=== PATIENT | female | born 1935 | race Caucasian/White ===

== ENCOUNTER 2017-10-04 11:32 | Emergency (ER) | payer MEDICARE, OTHER, MEDICAID ==
--- NOTE | 2017-10-04 11:49 | EDM.PDOC ---
ED HPI GENERAL MEDICAL PROBLEM - General Chief Complaint: Lower Extremity Injury/Pain Stated Complaint: ER Time Seen by Provider: 10/04/17 11:40 Source of Information: Reports: Patient, Family - History of Present Illness INITIAL COMMENTS - FREE TEXT/NARRATIVE: Patient comes into the emergency department with family with complaints of right foot pain. Patient was going down a step approximately 3 days ago and miss -stepped and rolled laterally on her foot. She states that she felt pain right away however she was able to ambulate and continue with her activities of daily living without concern. However this morning and it is increased in swelling and pain and is getting more difficult to ambulate on. Patient denies any numbness or tingling but does state that she has pain when stepping on the foot. No recent history or injuries related to that foot. Onset: Sudden Right Feet Pain Score (Numeric/FACES): 7 - Related Data Allergies Allergy/AdvReac Type Severity Reaction Status Date / Time atorvastatin [From Lipitor] Allergy Weakness Verified 10/04/17 12:10 cerivastatin [From Baycol] Allergy Weakness Verified 10/04/17 12:10 ezetimibe [From Zetia] Allergy Weakness Verified 10/04/17 12:10 Home Meds: Home Meds . [Unable to Verify Home Med List] 10/04/17 [History] Review of Systems - Review of Systems Review Of Systems: See Below Constitutional: Reports: No Symptoms Eyes: Reports: No Symptoms Respiratory: Reports: No Symptoms Cardiovascular: Reports: No Symptoms Musculoskeletal: Reports: Foot Pain Skin: Reports: No Symptoms ED EXAM, GENERAL - Physical Exam Exam: See Below Exam Limited By: No Limitations General Appearance: Alert, WD/WN, No Apparent Distress Respiratory/Chest: No Respiratory Distress, No Accessory Muscle Use Cardiovascular: Normal Peripheral Pulses Extremities: Other (right foot swelling, ecchymosis and decreased range of motion with flextion and internal rotation of the foot. Pain is located on the lateral aspect of the foot) Psychiatric: Normal Affect, Normal Mood Skin Exam: Warm, Dry, Intact, Normal Color, No Rash Course - Vital Signs Last Recorded V/S: Last Vital Signs Temp 37.5 C 10/04/17 11:32 Pulse 80 10/04/17 11:32 Resp 16 10/04/17 11:32 BP 128/75 10/04/17 11:32 Pulse Ox - Orders/Labs/Meds Orders: Active Orders 24 hr Category Date Time Status Foot Comp Min 3V Rt [CR] Stat Exams 10/04/17 11:42 Taken Departure - Departure Time of Disposition: 14:05 Disposition: Home, Self-Care 01 Condition: Good Clinical Impression: Metatarsal fracture Qualifiers: Encounter type: initial encounter Metatarsal bone: fifth Fracture type: closed Fracture alignment: nondisplaced Laterality: right Qualified Code(s): S92.354A - Nondisplaced fracture of fifth metatarsal bone, right foot, initial encounter for closed fracture - Discharge Information Instructions: Metatarsal Fracture Referrals: Theresa Jordan DO [Primary Care Provider] - Forms: ED Department Discharge Additional Instructions: 1. rest 2. Ice the area 3 times daily, 20 minutes each time 3. Keep extremity elevated to help reduce the swelling 4. OTC medication can be taken to help reduce the swelling and pain 5. Increase water intake if taking pain medications 6. Follow up with orthopedic in [place]. Call Friday for an appointment . - My Orders Last 24 Hours: My Active Orders 10/04/17 11:42 Foot Comp Min 3V Rt [CR] Stat - Assessment/Plan Last 24 Hours: My Active Orders 10/04/17 11:42 Foot Comp Min 3V Rt [CR] Stat Assessment:: 1. right foot pain 2. fifth metatarsal fracture of the right foot Plan: 1. xray completed in ER with results reviewed with the pt 2. Ice to the area while in the ER to reduce the swelling 3. consultation completed with [facility] regarding x-ray findings of acute multi-partite avulsion fracture at the base of the fifth metatarsal. Currently the surgeon is in surgery and he will call me back as soon as he is available ( 12:30). 4. 1400 call back from surgeon combination man at [place] (Dr. Franco). recommendation to put on a post operative surgical boot. And follow-up with orthopedic within the next week. Patient is advised to call on Friday. 5. Information regarding [facility] was given to the patient 6. education also given to the patient regarding [id number] pain medications
[2017-10-04 11:59] VITALS: BP 128/75
== END 2017-10-04 14:15 | disposition home or self-care (01) ==
LOC: VM.ED 11:32
DX: S92.354A Nondisplaced fracture of fifth metatarsal bone, right foot, initial encounter for closed fracture (principal); Z88.8 Allergy status to other drugs, medicaments and biological substances; W10.9XXA Fall (on) (from) unspecified stairs and steps, initial encounter
CPT/HCPCS: 73630-RT; 99283

== ENCOUNTER 2019-11-22 17:12 | Observation (INO) | payer MEDICARE, OTHER, MEDICAID ==
--- NOTE | 2019-11-22 18:10 | CR ---
[id number] RAD/RAD Foot Bilateral 3V EXAM: 6 VIEWS BILATERAL FEET. INDICATION: PAIN/ECCHYMOSIS TO FEET/TOES, UNKNOWN TRAUMA. COMPARISON: None. DISCUSSION: Age-indeterminate fracture involving the proximal right 1st phalanx. No significant displacement. This appears likely chronic though suggestion of fracture line is evident. Acute fracture of the base of the proximal 5th metatarsal. No significant displacement. Degenerative changes seen throughout the feet bilaterally. IMPRESSION: 1. As above. Harpreet Rosales DO 11/22/19 1809 Thank you for allowing us to participate in the care of your patient.
--- NOTE | 2019-11-22 18:59 | CR ---
[id number] RAD/RAD Pelvis 1V W 2V Right Hip EXAM: 3 VIEWS RIGHT HIP. INDICATION: HIP PAIN, UNKNOWN TRAUMA. HISTORY OF DEMENTIA. COMPARISON: None. DISCUSSION: No fracture, dislocation or other acute osseous abnormality. Mild degenerative changes of the right hip. IMPRESSION: 1. NO ACUTE OSSEOUS ABNORMALITIES. Harpreet Rosales DO 11/22/19 [id number] Thank you for allowing us to participate in the care of your patient.
[2019-11-22] MEDS ORDERED: Take Home: Acetaminophen/Codeine 300 MG/30 MG, 5 Tab Pack PO ONE (19:03)
--- NOTE | 2019-11-22 19:24 | EDM.PDOC ---
ED HPI GENERAL MEDICAL PROBLEM - General Chief Complaint: Lower Extremity Injury/Pain Stated Complaint: GENERAL Time Seen by Provider: 11/22/19 17:15 Source of Information: Reports: Patient, EMS, Family History Limitations: Reports: No Limitations - History of Present Illness INITIAL COMMENTS - FREE TEXT/NARRATIVE: Pt. presents to ER with complaints of bilateral foot pain and difficulty with standing/ambulation. Pt. has a history of severe dementia and resides in an apartment by herself. Daughter states that she checked on her and noticed that there was an acute change in the patient's status. Pt. denies any trauma. She was transported to ER via EMS. On arrival to ER, she had already forgotten about why she was transported. Apparently she was not experiencing any discomfort unless she was walking or bearing weight. Again, patient denies any trauma but she has severe dementia. Denies any trauma elsewhere. Location: Reports: Lower Extremity, Left, Lower Extremity, Right Quality: Reports: Ache Severity: Moderate Improves with: Reports: Rest Worsens with: Reports: Movement Associated Symptoms: Reports: Other. Denies: Chest Pain, Cough, Diaphoresis, Fever/Chills, Headaches, Loss of Appetite, Nausea/Vomiting, Rash, Shortness of Breath, Syncope Treatments SUPERVISOR TAPING: Reports: IV/IO Bilateral Feet Pain Score (Numeric/FACES): 5 Right Hip Pain Score (Numeric/FACES): 4 - Related Data Allergies Allergy/AdvReac Type Severity Reaction Status Date / Time atorvastatin [From Lipitor] Allergy Weakness Verified 11/22/19 18:29 cerivastatin [From Baycol] Allergy Weakness Verified 11/22/19 18:29 ezetimibe [From Zetia] Allergy Weakness Verified 11/22/19 18:29 Home Meds: Home Meds Acetaminophen [Tylenol] 650 mg PO Q4H PRN 11/22/19 [History] Aspirin 325 mg PO DAILY 11/22/19 [History] Calcium Carbonate/Vitamin D3 [Calcium 1,000 + D3 Caplet] 1 each PO DAILY [History] Cholecalciferol (Vitamin D3) [Vitamin D3] 2,000 unit PO DAILY 11/22/19 [History] Cyanocobalamin (Vitamin B-12) [B-12] 1,000 mcg PO DAILY 11/22/19 [History] Denosumab [Prolia] 60 mg SQ Q182D 11/22/19 [History] Donepezil HCl 10 mg PO DAILY 11/22/19 [History] Metoprolol Succinate [Toprol XL] 25 mg PO DAILY 11/22/19 [History] Past Medical History HEENT History: Reports: Cataract, Hard of Hearing, Other (See Below) Other HEENT History: presbyopia. hypermetropia Cardiovascular History: Reports: High Cholesterol, Hypertension, Other (See Below) Other Cardiovascular History: antiphospolipid antibody syndrome Gastrointestinal History: Reports: Other (See Below) Other Gastrointestinal History: cholecystitis Musculoskeletal History: Reports: Osteoporosis Neurological History: Reports: CVA, Other (See Below) Other Neuro History: cerebrovascular disease. cognitive impairment - Past Surgical History HEENT Surgical History: Reports: Other (See Below) Other HEENT Surgeries/Procedures: Right acoustic neuroma GI Surgical History: Reports: Cholecystectomy, Other (See Below) Other GI Surgeries/Procedures: lap delmy Female Surgical History: Reports: Hysterectomy Social & Family History - Tobacco Use Smoking Status *Q: Never Smoker Review of Systems - Review of Systems Review Of Systems: See Below Constitutional: Reports: No Symptoms Eyes: Reports: No Symptoms Ears: Reports: No Symptoms Nose: Reports: No Symptoms Mouth/Throat: Reports: No Symptoms Respiratory: Reports: No Symptoms Cardiovascular: Reports: No Symptoms GI/Abdominal: Reports: No Symptoms Genitourinary: Reports: No Symptoms Musculoskeletal: Reports: Other (bilateral foot/toe pain, R hip pain) Skin: Reports: No Symptoms Neurological: Reports: No Symptoms Psychiatric: Reports: No Symptoms ED EXAM, GENERAL - Physical Exam Exam: See Below Exam Limited By: No Limitations General Appearance: Alert, WD/WN, No Apparent Distress (Pleasant, smiling, offers no complaint unless examining he patient's feet.) Eye Exam: Bilateral Eye: EOMI, Normal Fundi, Normal Inspection, PERRL Nose: Normal Inspection, Normal Mucosa, No Blood Throat/Mouth: Normal Inspection, Normal Lips, Normal Teeth, Normal Oropharynx, Normal Voice, No Airway Compromise Head: Atraumatic, Normocephalic Neck: Normal Inspection, Supple, Non-Tender. No: Tender Lateral, Tender Midline Respiratory/Chest: No Respiratory Distress, Lungs Clear, Normal Breath Sounds, No Accessory Muscle Use, Chest Non-Tender Cardiovascular: Normal Peripheral Pulses, Regular Rate, Rhythm, No Edema, No JVD Peripheral Pulses: 4+: Radial (L) GI/Abdominal: Soft, Non-Tender, No Organomegaly, No Mass (Female) Exam: Deferred Rectal (Female) Exam: Deferred Back Exam: Normal Inspection, Full Range of Motion Extremities: Other (edema and ecchymosis noted to toes and forefoot bilaterally. Pain is most severe in R 5th digit. Also has pain in R hip, states is chronic. Noted to have some ecchymosis to forearms and elbows bilaterally. Also some pain to R hip so this was x-rayed as well.) Neurological: Alert, CN II-XII Intact, Normal Reflexes, No Motor/Sensory De ficits, Confused, Disoriented Psychiatric: Normal Affect, Normal Mood Skin Exam: Warm, Dry, Intact, Normal Color, No Rash Lymphatic: No Adenopathy Course - Vital Signs Last Recorded V/S: Last Vital Signs Temp 37.0 C 11/22/19 17:15 Pulse 96 11/22/19 17:15 Resp 16 11/22/19 17:15 BP 173/74 H 11/22/19 17:15 Pulse Ox 99 11/22/19 17:15 - Orders/Labs/Meds Meds: Medications Discontinued Medications Generic Name Dose Route Start Last Admin Trade Name Freq PRN Reason Stop Dose Admin Acetaminophen/Codeine Phosphate 1 packet 11/22/19 19:03 Take Home: Acetam/Codeine 300-30 Mg, 5 Pack PO 11/22/19 19:04 ONETIME ONE Departure - Departure Time of Disposition: 19:25 Disposition: Admitted As Inpatient 65 Clinical Impression: Toe fracture, right, Decreased mobility, Dementia - Discharge Information Sepsis Event Note (ED) - Evaluation Sepsis Screening Result: No Definite Risk - Focused Exam Vital Signs: Vital Signs Temp Pulse Resp BP Pulse Ox 11/22/19 17:15 37.0 C 96 16 173/74 H 99 - Problem List Review Problem List Initiated/Reviewed/Updated: Yes - Assessment/Plan Plan: Discussed findings with patient and family. Daughter is concerned about the patient's living situation in her apartment. She states that the family is unable to care for the patient and she feels that patient needs to be transitioned to a long-term care facility. Pt. will subsequently be admitted observation due to decreased mobility secondary to fracture of 5th digit of R foot. Toes will be raymon taped. She will be placed in a post op shoe. She does have evidence of a sub acute/chronic fracture of the R great toe. She does not have any pain with manipulation of this digit, so it likely is chronic. Walker and wheelchair for mobility. Will have her evaluated tomorrow by PT/OT. Dr. Jordan will see the patient in the AM. instructor ground services consult. Discussed code status with patient and family. She is a code 1.
[2019-11-22] MEDS ORDERED: Non-Formulary Medication 1 Each (Denosumab [Prolia] 60 MG) SQ SCH (21:30)
[2019-11-22] MEDS: Acetaminophen/Codeine 300-30 MG Tab PO PRN (22:09)
[2019-11-22] MEDS: Donepezil 10 MG Tab PO SCH (22:09)
[2019-11-23] MEDS: Acetaminophen/Codeine 300-30 MG Tab PO PRN ×2 (06:28→20:03)
[2019-11-23] MEDS: Acetaminophen 325 MG Tab PO PRN ×2 (06:28→20:03)
[2019-11-23] MEDS: Aspirin 325 MG Tab.EC PO SCH (07:30)
[2019-11-23] MEDS: Calcium Carbonate/Vitamin D3 1250 MG-200 Unit Tab PO SCH (07:31)
[2019-11-23] MEDS: Cyanocobalamin (Vitamin B12) 1,000 MCG Tab PO SCH (07:31)
[2019-11-23] MEDS: Cholecalciferol (Vitamin D3) 25 MCG Tab PO SCH (07:32)
[2019-11-23] MEDS: Metoprolol Succinate 25 MG Tab.ER PO SCH (08:38)
--- NOTE | 2019-11-23 18:27 | PN ---
Progress Note for SHERRELL GOVEA Date: 11/23/2019 Room #: VM.215 SUBJECTIVE: This is an 84-year-old who came on observation last night after being brought in by family with pain in her bilateral feet, worse with standing and ambulation. She has dementia and resides in an apartment by herself. Her daughter does check on her routinely, but lives out of town. She had noted she had not taken her pills for a few days. She had some bruising, so was brought into the ER for further evaluation. X-rays were done, which did show her to have bilateral proximal fifth metatarsal fractures as well as a right first phalanx fracture without any significant displacement. The patient is not aware of what happened to cause these fractures. She thinks she is in the hospital right now in [place], but she recognizes me as Dr. Jordan. She is polite, pleasant, cooperative. She has met with Physical Therapy, and they did not feel that she was a candidate for further therapy. She met with the occupational therapist who plans to do a cognitive eval later. She was otherwise independent with most of her ADLs, but does need supervision due to cognitive deficits. The patient did have previous memory testing, did poorly back in 2016 after gallbladder surgery, , but had improved, had OT testing and got a 3.8/5.8 or 66% of normal around that time, but memory has never got back to what it was prior. She has just gradually had further decreases, especially this winter, but due to COVID, the patient did not go in the care center. Her mini-mental in January was 26/30 and she lives at [facility]. The patient has been attempted on multiple occasions to get [facility], but for some reason that does not seem to have worked out. They do not feel that she has had any weight loss. OBJECTIVE: Vital signs: Her temperature 96.6, pulse of 67, blood pressure 100/52, respiratory rate 20, and O2 of 94% on room air. General: She is in no acute distress. Heart: Regular rate and rhythm. S1, S2 without murmur. Lungs: Her lung sounds are clear to auscultation bilaterally without crackles or wheezes. Extremities: Warm and dry. She does have bruising over her toes. She only has tenderness over that right great toe. Mental Status: She is alert. She is orientated x1. ASSESSMENT AND PLAN: 1. Bilateral toe fractures, minor. The patient is up and ambulatory. She has a surgical shoe now on that right foot. 2. Moderate Alzheimer's disease. Currently, she does not have any behavioral disturbances or hallucinations. 3. Osteoporosis. She is on Prolia. 4. B12 deficiency. She is on oral B12. 5. Essential hypertension. We will continue her Toprol. 6. History of acoustic neuroma and antiphospholipid syndrome. She will continue on aspirin. 7. Hyperlipidemia. She previously took a statin, but it was stopped. PLAN: At this point, the patient will continue on observation. We will work on getting a bed secured for her at the halfway. She will get her cognitive test done by OT tomorrow. Her daughter was present for this discussion and both were agreeable to this plan. MKA: 11/23/2019 17:28:47 MODL: 11/23/2019 18:20:38 /[id number] TYLER
[2019-11-23] MEDS: Donepezil 10 MG Tab PO SCH (20:04)
[2019-11-24] MEDS: Calcium Carbonate/Vitamin D3 1250 MG-200 Unit Tab PO SCH (07:26)
[2019-11-24] MEDS: Cholecalciferol (Vitamin D3) 25 MCG Tab PO SCH (07:26)
[2019-11-24] MEDS: Cyanocobalamin (Vitamin B12) 1,000 MCG Tab PO SCH (07:26)
[2019-11-24] MEDS: Aspirin 325 MG Tab.EC PO SCH (07:26)
[2019-11-24] MEDS: Metoprolol Succinate 25 MG Tab.ER PO SCH (07:27)
[2019-11-24 07:28] VITALS: BP 150/41; PULSE 60
--- NOTE | 2019-11-25 11:23 | DISCH ---
This is an 84-year-old who lives at home in [facility] [address]. Her daughter does check on her from time to time. She has had increasing memory difficulties over the last 3 years. She recently had pain in her feet. They were all bruised. She is not sure if she fell, bumped them, or dropped something on it. The patient is very politely confused. Daughter no longer feels she is safe to be at home. She was not taking her medications for the last couple days. The patient otherwise denies any chest pain, no trouble breathing. She feels like the feet are limiting her walking. She was seen by Physical Therapy and did quite well. Her cognitive eval was repeated by OT today and those results are pending on discharge, but her Mini-Mental was 26/30 last fall. She also in the past scored a 4.0/5.6 on her CPT. 24-hour supervision is recommended. DISCHARGE DIAGNOSIS: Includes Alzheimer's, late onset, without behavioral disturbance. SECONDARY DISCHARGE DIAGNOSES: 1. Essential hypertension. 2. Hyperlipidemia. 3. Osteoporosis with bilateral toe fractures, both 5th digits reported to be fractured and the left great toe. 4. B12 deficiency, on oral B12. 5. History of acoustic neuroma. 6. Antiphospholipid antibody syndrome. DISCHARGE PLANS AND INSTRUCTIONS: The patient will be going over to [facility] for further cares and 24-hour supervision. She will have PT and OT [facility] for a cognitive eval. She will continue on her same medications. She may use Tylenol for pain. She did get 1 dose of Tylenol with codeine here. She will continue on her Prolia every 6 months with next dose due in late January or early February. DISCHARGE MEDICATIONS: Do include aspirin 325 mg daily, Toprol 25 mg daily, Tylenol 650 every 4 hours as needed for pain, calcium and vitamin D one tablet daily, vitamin D 2000 units daily, B12 1000 mcg daily, donepezil 10 mg daily. FOLLOWUP PLAN: The patient will be seen by Dr. Jordan on next [facility] rounds. PHYSICAL EXAMINATION: Vital Signs: Her discharging vitals today include temperature 98.9, pulse 65, blood pressure 152/61, respiratory rate 17, and O2 of 95% on room air. General: She is in no acute distress. Heart: Regular rate and rhythm. S1, S2 without murmur. Lungs: Sounds are clear to auscultation bilaterally without crackles or wheezes. Extremities: Warm and dry. Bruising continues over the toes, but only discomfort to the left great toe. Mental Status: She is actually alert and orientated x3 today. She knows she is at [facility]. She says the date is November. She was not quite sure of herself, but it is 11/23, and she can recognize me. MKA: 11/24/2019 17:17:10 MODL: 11/24/2019 18:55:09 /[id number]
== END 2019-11-24 10:10 ==
LOC: VM.ED 17:12 → VM.MS 19:11
PROVIDERS: ADMIT Physician Assistant; ATTEND Physician Assistant
DX: M80.072A Age-related osteoporosis with current pathological fracture, left ankle and foot, initial encounter for fracture (principal); M80.071A Age-related osteoporosis with current pathological fracture, right ankle and foot, initial encounter for fracture; E78.00 Pure hypercholesterolemia, unspecified; I10 Essential (primary) hypertension; G30.9 Alzheimer's disease, unspecified; F02.80 Dementia in other diseases classified elsewhere, unspecified severity, without behavioral disturbance, psychotic disturbance, mood disturbance, and anxiety; D68.61 Antiphospholipid syndrome; E53.8 Deficiency of other specified B group vitamins; E78.5 Hyperlipidemia, unspecified; Z86.018 Personal history of other benign neoplasm; Z88.8 Allergy status to other drugs, medicaments and biological substances; Z79.82 Long term (current) use of aspirin; Z79.899 Other long term (current) drug therapy
CPT/HCPCS: 73630-50; 97129-GO; 97130-GO; 97161-GP; 97165-GO; 99285-25; A9270-GY; G0378; U0002

== ENCOUNTER 2021-10-28 13:31 | Emergency (ER) | payer MEDICARE, OTHER, MEDICAID ==
[2021-10-28 14:26] LABS: CHLORIDE,CL 106 mmol/L (98-107); SODIUM,NA 143 mmol/L (136-145)
[2021-10-28 14:27] LABS: ANION GAP 13.5 mmol/L (5-15); PTT,PARTIAL THROMBOPLSTIN TIME 27.9 SEC (20.5-30.9)
[2021-10-28 14:49] VITALS: BP 151/55; PULSE 80
== END 2021-10-28 15:24 | disposition short-term general hospital (02) ==
LOC: VM.ED 13:31
DX: S72.001A Fracture of unspecified part of neck of right femur, initial encounter for closed fracture (principal); E78.00 Pure hypercholesterolemia, unspecified; I10 Essential (primary) hypertension; Z86.73 Personal history of transient ischemic attack (TIA), and cerebral infarction without residual deficits; Z79.82 Long term (current) use of aspirin; Z79.899 Other long term (current) drug therapy; Z88.8 Allergy status to other drugs, medicaments and biological substances; W18.30XA Fall on same level, unspecified, initial encounter; Y92.129 Unspecified place in nursing home as the place of occurrence of the external cause
CPT/HCPCS: 36415; 80053; 85025; 85610; 85730; 99284; 99285-25